=== PATIENT | male | born 1990 | race Caucasian/White ===

== ENCOUNTER 2023-02-16 20:06 | Emergency (ER) | payer OTHER ==
[~2023-02-16] VITALS: Ht 160 cm; Wt 100.0 kg
[2023-02-16 20:09] VITALS: BP 151/99
[2023-02-16] MEDS ORDERED: TETRACAINE HCL/PF 0.5% 4 ML OPHTHALMIC SOLUTION OU ONE (21:15)
[2023-02-16] MEDS ORDERED: FLUORESCEIN SODIUM 1 MG STRIP OU ONE (22:00)
[2023-02-16] MEDS ORDERED: MOXI3DRO27 OU (22:06)
== END 2023-02-16 22:16 | disposition home or self-care (01) ==
LOC: EMS 20:06
DX: H10.13 Acute atopic conjunctivitis, bilateral (principal); F12.90 Cannabis use, unspecified, uncomplicated
CPT/HCPCS: 99283